=== PATIENT | male | born 1955 | race Caucasian/White ===

== ENCOUNTER 2021-07-19 12:22 | Inpatient (IN) | payer SELFPAY ==
[~2021-07-19] VITALS: Ht 188 cm; Wt 102.9 kg
[2021-07-19] MEDS ORDERED: ASPI-963 PO (12:41)
[2021-07-19] MEDS ORDERED: OMEG1CAP23 PO (12:41)
[2021-07-19] MEDS ORDERED: DIPH,PERTUSS(ACELL),TET VAC/PF 0.5 ML IM-VACC ONE ×2 (12:45→13:00)
[2021-07-19] MEDS ORDERED: NEOSPORIN OINT. PKT 1 PACKET ONE (12:57)
--- NOTE | 2021-07-19 12:57 | NUR ---
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 NAD NOTED AT THIS TIME. SISTER AT BEDSIDE. PT GIVEN TETANUS VACCINE.
--- NOTE | 2021-07-19 13:04 | NUR ---
REPORT FROM VINCENT MARTINEZ. PT ON MONITOR III DEGREE AV BLOCK, BP STABLE, PT MENTATING WELL, DENIES DIZZINESS. SISTER AT BEDSIDE. WOUND ON L ELBOW CLEANED AND DRESSED.
[2021-07-19 13:16] LABS: ANION GAP 8 mmol/L (5-15); CALCIUM 8.2 mg/dL (8.5-10.1); CHLORIDE 101 mmol/L (98-107); CREATININE 1.27 mg/dL (0.7-1.3)
[2021-07-19 13:25] LABS: BASOPHILS % (AUTO) 0 % (0-1); EOSINOPHILS % (AUTO) 0 % (1-7); LYMPHOCYTES % (AUTO) 9 % (22-44); MEAN CORPUSCULAR HEMOGLOBIN 30.3 pg (27.5-34.5); MEAN CORPUSCULAR HGB CONC 33.9 g/dL (33.2-36.2); MEAN PLATELET VOLUME 9.3 fL (7.4-10.4); MONOCYTES % (AUTO) 8 % (2-9); NEUTROPHILS % (AUTO) 82 % (42-75); PLATELET COUNT 147 x10^3/uL (130-400); RED CELL DISTRIBUTION WIDTH 14.7 % (9.4-14.8)
--- NOTE | 2021-07-19 13:37 | NUR ---
REPORT TO TORY MARTINEZ.
--- NOTE | 2021-07-19 13:59 | NUR ---
PT TO BE HOLD IN ED.
--- NOTE | 2021-07-19 14:34 | NUR ---
RESTING IN BED NAD. PT TO GO TO CUFF PRESSER, SHRESTHA AT BEDSIDE.
[2021-07-19] MEDS ORDERED: FENTANYL PF 100 MCG/2ML ONE (15:07)
[2021-07-19] MEDS ORDERED: CEFAZOLIN 1,000 MG ONE (15:07)
[2021-07-19] MEDS ORDERED: CEFAZOLIN PMX 1GM/50ML 50 ML ONE (15:07)
[2021-07-19] MEDS ORDERED: MIDAZOLAM 1 MG/ML, 5ML ONE (15:07)
[2021-07-19] MEDS ORDERED: LIDOCAINE 2%, 20ML ONE ×2 (15:07→15:29)
[2021-07-19] MEDS ORDERED: DIPHENHYDRAMINE 50 MG/ML, 1ML ONE (15:29)
[2021-07-19 16:00] VITALS: BP 136/69
[2021-07-19] MEDS ORDERED: HOLD MEDICATION MC PRN (16:30)
[2021-07-19] MEDS ORDERED: HYDROcodone/APAP 5/325 TABLET PO PRN (16:30)
[2021-07-19] MEDS ORDERED: ACETAMINOPHEN 325 MG TABLET PO PRN (18:00)
[2021-07-19] MEDS ORDERED: ONDANSETRON 2MG/ML, 2ML IVPush PRN (18:30)
[2021-07-19] MEDS ORDERED: DOCUSATE 100 MG CAPSULE PO PRN (18:30)
[2021-07-19] MEDS ORDERED: POLYETHYLENE GLYCOL 17 GM PACKET PO PRN (18:30)
[2021-07-19 19:32] VITALS: BP 111/74
[2021-07-19] MEDS: SODIUM CHLORIDE FLUSH 10ML SYR IVF SCH (21:00)
[2021-07-19] MEDS ORDERED: ASCO250T32 PO (21:02)
[2021-07-19] MEDS ORDERED: CARV3.12 PO (21:02)
[2021-07-19] MEDS ORDERED: CHOL10003 PO (21:02)
[2021-07-19] MEDS ORDERED: SPIR25TA5 PO (21:02)
[2021-07-19] MEDS ORDERED: SILD20TA2 PO (21:02)
[2021-07-19] MEDS ORDERED: LEVO125T PO (21:02)
[2021-07-19] MEDS ORDERED: MULT-257 PO (21:02)
[2021-07-19] MEDS ORDERED: [UNRECOGNIZED DRUG - CODE] PO (21:02)
[2021-07-19] MEDS ORDERED: AMIO100T4 PO (21:02)
[2021-07-19] MEDS ORDERED: ASPI-647 PO (21:02)
[2021-07-19] MEDS ORDERED: TADA2.5T PO (21:02)
[2021-07-19] MEDS ORDERED: BUME2TAB3 PO (21:02)
[2021-07-19] MEDS: CEFAZOLIN PMX 1GM/50ML 50 ML IVPB SCH (21:54)
[2021-07-19] MEDS: ASCORBIC ACID 500 MG TABLET PO SCH (21:54)
[2021-07-20 00:25] VITALS: BP 135/75
[2021-07-20 05:21] LABS: BASOPHILS % (AUTO) 0 % (0-1); EOSINOPHILS % (AUTO) 0 % (1-7); LYMPHOCYTES % (AUTO) 14 % (22-44); MEAN CORPUSCULAR HEMOGLOBIN 29.8 pg (27.5-34.5); MEAN CORPUSCULAR HGB CONC 33.7 g/dL (33.2-36.2); MEAN PLATELET VOLUME 8.8 fL (7.4-10.4); MONOCYTES % (AUTO) 6 % (2-9); NEUTROPHILS % (AUTO) 80 % (42-75); PLATELET COUNT 148 x10^3/uL (130-400); RED CELL DISTRIBUTION WIDTH 14.6 % (9.4-14.8)
[2021-07-20 05:34] LABS: ALBUMIN 2.5 g/dL (3.4-5.0); ANION GAP 9 mmol/L (5-15); CALCIUM 7.7 mg/dL (8.5-10.1); CHLORIDE 101 mmol/L (98-107)
[2021-07-20 05:42] LABS: ALANINE AMINOTRANSFERASE 18 U/L (12-78); ALKALINE PHOSPHATASE 57 U/L (45-117); BILIRUBIN,TOTAL 0.7 mg/dL (0.2-1.0); CREATINE KINASE, TOTAL 125 U/L (39-308); CREATININE 0.87 mg/dL (0.7-1.3); TOTAL PROTEIN 6.6 g/dL (6.4-8.2)
[2021-07-20] MEDS: CEFAZOLIN PMX 1GM/50ML 50 ML IVPB SCH (06:16)
[2021-07-20 06:39] LABS: D-DIMER 1.97 ug/mlFEU (0.00-0.52)
[2021-07-20 07:30] VITALS: BP 110/70
[2021-07-20] MEDS ORDERED: CHOLECALCIFEROL 5,000u TAB PO SCH (09:00)
[2021-07-20] MEDS ORDERED: THIAMINE 100MG TABLET PO SCH (09:00)
[2021-07-20] MEDS ORDERED: ZINC SULFATE 220 MG CAPSULE PO SCH (09:00)
[2021-07-20] MEDS ORDERED: OMNIPAQUE 350 MG/ML, 100ML BOTTLE ONE (09:59)
[2021-07-20] MEDS: ASCORBIC ACID 500 MG TABLET PO SCH (10:34)
[2021-07-20] MEDS: SODIUM CHLORIDE FLUSH 10ML SYR IVF SCH (10:35)
[2021-07-20] MEDS ORDERED: ASPI81TA45 PO (12:34)
== END 2021-07-20 14:27 | disposition left against medical advice (07) | DRG 242 ==
LOC: ED 12:50 → 5SO 12:51 → ED 14:30 → SUATTDRO 14:31 → ED 15:01
PROVIDERS: ADMIT Internal Medicine; ATTEND Internal Medicine
PROC: 0JH606Z Insertion of Pacemaker, Dual Chamber into Chest Subcutaneous Tissue and Fascia, Open Approach (ICD-10-PCS; principal; 2021-07-19)
PROC: 02HK3JZ Insertion of Pacemaker Lead into Right Ventricle, Percutaneous Approach (ICD-10-PCS; 2021-07-19)
PROC: 02H63JZ Insertion of Pacemaker Lead into Right Atrium, Percutaneous Approach (ICD-10-PCS; 2021-07-19)
DX: I44.2 Atrioventricular block, complete (principal); U07.1 COVID-19; E87.1 Hypo-osmolality and hyponatremia; Q21.1 Atrial septal defect; E78.5 Hyperlipidemia, unspecified; I10 Essential (primary) hypertension; R09.02 Hypoxemia; R00.1 Bradycardia, unspecified; G90.8 Other disorders of autonomic nervous system; R79.82 Elevated C-reactive protein (CRP); Z86.73 Personal history of transient ischemic attack (TIA), and cerebral infarction without residual deficits
CPT/HCPCS: 33208; 36415; 84145; 99285; J3490; 71045; 71275; 80048; 80053; 82550; 82728; 83615; 83735; 85025; 85379; 85384; 86140; 90471; 90715; 93005; 99156; 99157; C1779; C1785; C1892; G0378; J0690; J2250; J3010; Q9967; U0005; J1200; U0003